=== PATIENT | male | born 1990 | race Hispanic/Latino ===

== ENCOUNTER 2020-01-26 12:06 | Emergency (ER) | payer SELFPAY ==
[2020-01-26] MEDS ORDERED: DIPHENOXYLATE HCL/ATROPINE 2.5/0.025 MG TAB PO ONE (13:17)
[2020-01-26] MEDS ORDERED: ONDANSETRON ODT 4 MG TAB ONE (13:17)
== END 2020-01-26 14:42 | disposition home or self-care (01) ==
LOC: EDH 12:06
DX: R11.2 Nausea with vomiting, unspecified (principal); R19.7 Diarrhea, unspecified; I10 Essential (primary) hypertension